=== PATIENT | male | born 1965 | race African-American/Black ===

== ENCOUNTER 2023-05-29 09:50 | Observation (INO) | payer OTHER, SELFPAY ==
[2023-05-29] VITALS (32 sets, daily range): BP systolic 136–205; BP diastolic 79–105; PULSE 75–115; RESP 14–33; TEMP 36.3–36.8; O2SAT 93–100
--- NOTE | ~2023-05-29 | CT_ITS ---
EXAMINATION: CTA chest PE protocol DATE: 05/29/2023 11:26 INDICATION: Syncope. TECHNIQUE: Computed tomography angiography (CTA) of the chest was performed with 100 mL Omnipaque-350 intravenous contrast timed to evaluate the pulmonary arteries. Coronal maximum intensity projection 3D-reconstructions were created by the technologist. Automated exposure control and iterative reconst ruction technique were employed. The dose-length product was 1867.25 mGy-cm. COMPARISON: None. FINDINGS: The lungs demonstrate mild dependent atelectasis. No pleural effusion. Cardiomegaly is note d. No pericardial effusion. There is no pulmonary embolus. There are bridging endplate osteophytes at multiple levels in the spine, consistent with diffuse idiopathic skeletal hyperostosis (DISH). IMPRESSION: 1. No pulmonary embolus. Sensitivity is mildly decreased by motion artifact. Reviewed, dictated and finalized at location A.
--- NOTE | ~2023-05-29 | NM_ITS ---
EXAMINATION: NM stress w perf spect multi DATE: 06/01/2023 13:50 INDICATION: Chest pain. TECHNIQUE: Rest images were obtained following intravenous administration of 10 mCi Tc99m tetrofosmin (Myoview). The patient performed an exercise activity. At peak exercise, 30.6 mCi Tc99m tetrofosmin (Myoview) was administered intravenously, and stress images were obtained. Data was reconstructed int o short axis and horizontal and vertical long axis SPECT images. Gated SPECT images were also obtaine d. COMPARISON: Chest CT 05/29/2023 FINDINGS: Increased activity below the diaphragm decreases sensitivity and specificity in the inferio r wall. There is a small, mild, reversible perfusion defect involving apical lateral segment of left ventricle, consistent with ischemia. There is no segmental wall motion abnormality. Left ventricula r ejection fraction measures >70%. IMPRESSION: 1. Small area of mild ischemia involving apical lateral segment of left ventricle. 2. Normal left ventricular ejection fraction measuring >70%. Reviewed, dictated and finalized at location A. IMPRESSION: 1. Small area of mild ischemia involving apical lateral segment of left ventric le. 2. Normal left ventricular ejection fraction measuring >70%.
--- NOTE | ~2023-05-29 | XR_ITS ---
Portable chest x-ray Comparison: None Clinical History: Syncope Findings: Lungs are clear, without focal consolidation or pleural effusion. Cardiomediastinal silho uette is unremarkable. Bones and soft tissues are unremarkable. Impression: Normal chest. Reviewed, dictated and finalized at location . Impression: Normal chest.
--- NOTE | ~2023-05-29 | CT_ITS ---
EXAMINATION: CT brain wo con DATE: 05/29/2023 11:26 INDICATION: Syncope. Head injury. TECHNIQUE: Computed tomography (CT) of the head was performed without intravenous contrast. The mA wa s adjusted according to patient size. Iterative reconstruction technique was employed. The dose-lengt h product was 605.33 mGy-cm. COMPARISON: None FINDINGS: There is no intracranial hemorrhage, acute infarction, or abnormal intracranial mass lesion . There is an old lacunar infarct in left thalamus. The ventricles are normal in size. The orbits are normal. There is mild mucosal thickening in the ethmoid sinuses. The mastoid air cells are normal. IMPRESSION: 1. Old lacunar infarct in left thalamus. Reviewed, dictated and finalized at location A.
--- NOTE | 2023-05-29 09:55 | ECG_ITS ---
Measurements Intervals [place] Rate: 110 P: 59 MI: 177 QRS: 49 QRSD: 93 T: 65 QT: 329 QTc: 445 Interpretive Statements SINUS TACHYCARDIA POSSIBLE LEFT ATRIAL ENLARGEMENT [-0.1mV P WAVE IN V1/V2] NONSPECIFIC ST & T-WAVE ABNORMALITY ABNORMAL RHYTHM ECG NO PREVIOUS ECG AVAILABLE FOR COMPARISON Electronically Signed On 05-29-2023 14:26:04 CDT by Vinicius Barbosa M.D.
[2023-05-29 10:17] LABS: Basophils Percent Auto 0.6 % (0.2-1.2); Eosinophils Absolute Auto 0.1 K/mm3 (0-0.3); Eosinophils Percent Auto 1.1 % (0-4.4); Hematocrit 41.4 % (42.0-52.0); Hemoglobin 13.4 g/dL (14.0-18.0); Immature Granulocyte Absolute 0.02 K/mm3 (0.00-0.031); Immature Granulocyte Percent A 0.3 % (0-0.5); Lymphocytes Absolute Auto 1.53 K/mm3 (0.9-3.2); Lymphocytes Percent Auto 23.8 % (18.3-44.2); Mean Corpuscular HGB Conc 32.4 g/dl (32-36); Mean Corpuscular Hemoglobin 26.3 pg (26-34); Mean Corpuscular Volume 81.3 fl (80-100); Mean Platelet Volume 9.5 fl (7.4-10.4); Monocytes Absolute Auto 0.5 K/mm3 (0.1-0.6); Monocytes Percent Auto 7.5 % (2.6-8.5); Neutrophils Absolute Auto 4.3 K/mm3 (1.3-6.7); Neutrophils Percent Auto 66.7 % (45.5-73.1); Platelet Count Result 316 k/mm3 (150-375); Red Blood Count 5.09 M/mm3 (4.6-6.20); Red Cell Distribution Width 14.1 % (11.5-14.5); White Blood Count 6.4 K/mm3 (4.5-10.0)
--- NOTE | 2023-05-29 10:17 | ED.SYNCOPE ---
HPI - Syncope General Chief Complaint: Syncope Stated Complaint: mult. syncopal episodes, htn Time Seen by Provider: 05/29/23 10:01 History of Present Illness HPI narrative: This is a 57-year-old male, with past history of hypertension, brought in by EMS after syncopal episode. The patient states he has had several episodes of of nonbloody loose stools in the past day. He also states he recently started a new oral medications for his hypertension in the past 2 days. Today while standing at work, he states he suddenly lost consciousness. He is not sure of preceding symptoms. He complains of headache, described as dull, diffuse and rated 4/10. Related Data Home Medications Medication Instructions Recorded Confirmed amlodipine 5 mg tablet 5 mg PO DAILY 05/29/23 05/29/23 atorvastatin 40 mg tablet 40 mg PO HS 05/29/23 05/29/23 cholecalciferol (vitamin D3) 125 125 mcg PO DAILY 05/29/23 05/29/23 mcg (5,000 unit) capsule doxazosin 2 mg tablet 2 mg PO HS 05/29/23 05/29/23 empagliflozin 10 mg tablet 10 mg PO DAILY 05/29/23 05/29/23 (Jardiance) ezetimibe 10 mg tablet 10 mg PO DAILY 05/29/23 05/29/23 fluticasone fur. 100 mcg-umeclid 1 inh inhalation DAILY 05/29/23 05/29/23 62.5 mcg-vilant 25 mcg inhalat.powder (Trelegy Ellipta) folic acid 1 mg tablet 1 mg PO DAILY 05/29/23 05/29/23 hydralazine 100 mg tablet 100 mg PO TID 05/29/23 05/29/23 lisinopril 40 mg tablet 40 mg PO DAILY 05/29/23 05/29/23 metformin 500 mg tablet 500 mg PO BID 05/29/23 05/29/23 metoprolol succinate 25 mg 25 mg PO DAILY 05/29/23 05/29/23 tablet,extended release 24 hr sildenafil 100 mg tablet 100 mg PO DAILY PRN Erectile 05/29/23 05/29/23 Dysfunction Allergies Allergy/AdvReac Type Severity Reaction Status Date / Time No Known Allergies Allergy Verified 05/29/23 09:57 Review of Systems Review of Systems: CONSTITUTIONAL: Denies fever, chills, or sweats. CARDIOVASCULAR: Denies chest pain, palpitations, or edema. RESPIRATORY: Denies cough or dyspnea. GASTROINTESTINAL: Nausea denies abdominal pain, vomiting, or diarrhea. GENITOURINARY: Denies dysuria or hematuria. SKIN: Denies rash or itching. MUSCULOSKELETAL: Denies back pain, joint pain, or myalgia. NEUROLOGIC: Headache denies numbness, dizziness, or weakness. PSYCHIATRIC: Denies anxiety or depression. PMFSH Past Medical History Medical History Hypertension Surgical History Surgical History No significant past surgical history Family History Family History (Updated 05/29/23 @ 17:00 by Ora Cruz RN) Other No problems noted. Grandparent No problems noted. Mother Cancer Sibling Cancer Social History Social History Smoking status: Never smoker Alcohol intake: never Drinks per week: 1 Substance use: never Lack of Transportation: No Lack of Food: Never True Current Housing: I Have Housing Concerned About Future Housing: No Difficulty Paying Gas/Electric Bills: No Difficulty Paying for Meds: No Currently Unemployed: No Education: Bachelor's Degree Difficulty w/ Childcare or Family Care: No Spiritual care concerns: No Exam Narrative: GENERAL: Well-developed, well-nourished, and in no acute distress. HEAD: Normocephalic, atraumatic. EYES: PERRLA and EOMI. ENT: Nares clear, no rhinorrhea or epistaxis. Mucous membranes moist. Oropharynx without tonsillar hypertrophy exudate or other lesions. NECK: Supple. No adenopathy or masses. No midline spine tenderness to palpation, no step-off or crepitus CHEST: Clear to auscultation. No respiratory distress. No wheezes rales or rhonchi HEART: Tachycardic with regular rhythm. No murmur heard. Normal peripheral pulses. ABDOMEN: Soft, nontender, nondistended, normal active bowel sounds. EXTREMITIES: Normal
[2023-05-29 10:28] LABS: Alanine Aminotransferase 28 U/L (6-50); Albumin Level 4.2 g/dL (3.5-5.1); Alkaline Phosphatase 111 U/L (38-126); Anion Gap 7 mmol/L (8-16); Aspartate Amino Transferase 24 U/L (17-59); Bilirubin,Total 0.4 mg/dL (0.2-1.3); Blood Urea Nitrogen 12 mg/dL (9-20); Calcium 9.1 mg/dL (8.4-10.2); Carbon Dioxide 21 mmol/L (22-30); Chloride 107 mmol/L (98-107); Estimated CRCL calculation 86 ml/min; Estimated Glomerular Filt Rate > 60; Glucose 179 mg/dL (65-110); Potassium 3.5 mmol/L (3.4-5.0); Sodium 135 mmol/L (137-145)
[2023-05-29] MEDS: SODIUM CHLORIDE 0.9% IV 1,000 ML 999 ML IV CONT (10:29)
[2023-05-29] MEDS: ONDANSETRON INJ 4 MG/2 ML VIAL IV PUSH (10:30)
[2023-05-29] MEDS: ACETAMINOPHEN 500 MG TABLET 1000 MG PO ×2 (10:30→19:48)
[2023-05-29 10:39] LABS: Prothrombin Time 13.4 Seconds (11.1-14.7)
[2023-05-29 11:11] LABS: Creatine Kinase 112 U/L (55-170); Magnesium 1.7 mg/dL (1.6-2.3)
[2023-05-29] MEDS: LABETALOL HCL INJ 100 MG/20 ML VIAL 20 MG IV PUSH (11:57)
[2023-05-29] MEDS: hydrALAZINE HCL 20 MG/ML VIAL IV PUSH (13:23)
[2023-05-29 13:59] LABS: Troponin I < 0.012 ng/mL (0.000-0.034)
[2023-05-29 16:38] LABS: Troponin I < 0.012 ng/mL (0.000-0.034)
--- NOTE | 2023-05-29 16:50 | ADMGEN ---
This patient, Lokesh Phoenix, was admitted to IMU Room 204-01 on 05/29/23 at 1620. Patient/family oriented to hospital policies and general routines including ID bracelet, bed and alarms, visiting hours, pain management, procedures, bathroom and other care routines, personal items, smoking policy, room service/diet, and visiting hours. Information on how to activate the Rapid Response Team has been discussed. Patient/Family are encouraged to report perceived risks to care and to ask questions if they do not understand what they are told or what they should do.
[2023-05-29 16:52] LABS: Glucose Point of Care 93 mg/dl (65-105)
[2023-05-29] MEDS: hydrALAZINE HCL 20 MG/ML VIAL 10 MG IV PUSH (19:47)
--- NOTE | 2023-05-29 19:59 | PM.IMHP ---
H&P: HPI History of Present Illness Date/Time: 05/29/23 19:59 Chief Complaint: Passed out Narrative: 57-year-old male with a past medical history of diabetes, hypertension, erectile dysfunction and COPD who presented to the ER after having syncopal episode. 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 He was walking across the floor after he exited the forklift and suddenly developed crushing chest pain like someone was standing on his chest. He stated that he could not breathe and became sweaty. He then collapsed. Individual that his work stated that he had multiple syncopal events. A caught him while he was passing out any slumped against the desk. I suspect the patient was likely in out and may have been confused and this was interpreted as multiple syncopal events. It is unclear as there are no coworkers present. The patient's is at bedside and helps provide some of the history with the patient's permission. The patient states that he he had just taken his medications as he got off a forklift due to his symptoms. However on review of his external med history it looks like the patient had not wrist had any of his medications filled since October implying that he would of ran out of his medications in December. The only refilled on the 24 of May. The patient's is unsure if the patient is actually feeling or taking his medications as prescribed. She does not think they have been taking has erectile dysfunction today. The patient stated that he thought he had passed out because of taking all of his medications at once. He has been having several episodes of nonbloody loose stools over the past day or so. In the ER he was noted to be hypertensive. He was having a dull diffuse headache graded 4/10 in intensity. His coworkers stated the patient did not hit his head. He denies any associated nausea. He does snore and has a history of obstructive sleep apnea. He is in non compliant with his CPAP in his reports that she has step [place] him to use his CPAP. The patient had an echocardiogram many years ago but has never had a stress test. The patient reports that he is active enough that he thinks he could complete a treadmill stress test if needed. He stated that he used to jump rope for exercise but has not done so in a couple of months. He denies any urinary symptoms. He denies nausea or vomiting. He does have a history of GERD. The patient's reports that the patient has pre diabetes but patient is on to diabetic medications which would indicate the patient likely has diabetes. He does have urinary symptoms of BPH and is on medications for this. He has exercise-induced asthma per 's report. Patient denies any current wheezing. He does report feeling mildly short of breath. The patient did have a CTA of his chest which was negative for pulmonary embolism. CT of his head was negative. Chest x-ray was unremarkable. The patient did respond well to IV Lopressor given in the ER but his blood pressure rebounded quickly. He received another dose of IV hydralazine. With again rebounding blood pressure. Review of Systems Review of Systems: 12 systems were reviewed with pertinent positives and negatives per HPI. Except as documented in the HPI, all other systems were reviewed and are negative. Patient denies peripheral neuropathy symptoms he is PMFSH Past Medical History Medical History (Updated 05/30/23 @ 03:34 by Lauren Gonzalez DO) Erectile dysfunction Hyperlipidemia Hypertension Obstructive sleep apnea PTSD (post-traumatic stress disorder) Type 2 diabetes mellitus Surgical History Surgical History (Updated 05/30/23 @ 03:28 by Lauren Gonzalez DO) History of carpal tunnel release (~2011) Left History of surgery on arm (~2011) Left bicep tendon repair Family History Family History (Updated 05/30/23 @ 03:29 by Lauren Gonzalez DO) Mother Breast cancer, Onset Age: 50 Si
[2023-05-29 20:00] LABS: Glucose Point of Care 135 mg/dl (65-105)
[2023-05-29 20:28] LABS: Troponin I < 0.012 ng/mL (0.000-0.034)
[2023-05-29] MEDS: amLODIPine BESYLATE 5 MG TABLET PO (21:16)
[2023-05-29] MEDS: DOXAZOSIN MESYLATE 2 MG TABLET PO (21:17)
[2023-05-29] MEDS: ATORVASTATIN 40 MG TABLET PO (21:17)
[2023-05-29] MEDS: METOPROLOL SUCCINATE EXT REL 25 MG TABCR PO (21:17)
[2023-05-29] MEDS: hydrALAZINE HCL 50 MG TABLET 100 MG PO (21:18)
[2023-05-30] VITALS (17 sets, daily range): BP systolic 139–161; BP diastolic 70–77; PULSE 75–92; RESP 14–20; TEMP 36.4–36.9; O2SAT 94–97
[2023-05-30 04:37] LABS: Basophils Percent Auto 0.3 % (0.2-1.2); Eosinophils Percent Auto 0.6 % (0-4.4); Hematocrit 42.3 % (42.0-52.0); Hemoglobin 13.4 g/dL (14.0-18.0); Immature Granulocyte Absolute 0.02 K/mm3 (0.00-0.031); Immature Granulocyte Percent A 0.3 % (0-0.5); Lymphocytes Absolute Auto 1.23 K/mm3 (0.9-3.2); Lymphocytes Percent Auto 19.9 % (18.3-44.2); Mean Corpuscular HGB Conc 31.7 g/dl (32-36); Mean Corpuscular Hemoglobin 26.4 pg (26-34); Mean Corpuscular Volume 83.4 fl (80-100); Mean Platelet Volume 9.8 fl (7.4-10.4); Monocytes Absolute Auto 0.4 K/mm3 (0.1-0.6); Monocytes Percent Auto 6.3 % (2.6-8.5); Neutrophils Absolute Auto 4.5 K/mm3 (1.3-6.7); Neutrophils Percent Auto 72.6 % (45.5-73.1); Platelet Count Result 302 k/mm3 (150-375); Red Blood Count 5.07 M/mm3 (4.6-6.20); Red Cell Distribution Width 14.4 % (11.5-14.5); White Blood Count 6.2 K/mm3 (4.5-10.0)
[2023-05-30 04:48] LABS: Anion Gap 3 mmol/L (8-16); Blood Urea Nitrogen 11 mg/dL (9-20); Calcium 9.3 mg/dL (8.4-10.2); Carbon Dioxide 27 mmol/L (22-30); Chloride 106 mmol/L (98-107); Estimated CRCL calculation 78 ml/min; Estimated Glomerular Filt Rate > 60; Glucose 122 mg/dL (65-110); Potassium 3.9 mmol/L (3.4-5.0); Sodium 136 mmol/L (137-145)
[2023-05-30 07:33] LABS: Glucose Point of Care 121 mg/dl (65-105)
[2023-05-30] MEDS: CHOLECALCIFEROL 1,000 UNITS TABLET 5000 UNITS PO (08:09)
[2023-05-30] MEDS: amLODIPine BESYLATE 5 MG TABLET PO (08:09)
[2023-05-30] MEDS: EMPAGLIFLOZIN 10 MG TABLET PO (08:10)
[2023-05-30] MEDS: EZETIMIBE 10 MG TABLET PO (08:10)
[2023-05-30] MEDS: ENOXAPARIN 40 MG/0.4 ML SYRINGE SUB-Q (08:10)
[2023-05-30] MEDS: lisinopriL 20 MG TABLET 40 MG PO (08:11)
[2023-05-30] MEDS: hydrALAZINE HCL 50 MG TABLET 100 MG PO ×3 (08:11→17:05)
[2023-05-30] MEDS: FOLIC ACID 1 MG TABLET PO (08:11)
[2023-05-30] MEDS: METOPROLOL SUCCINATE EXT REL 25 MG TABCR PO (08:11)
--- NOTE | 2023-05-30 08:52 | PM.IMPN ---
Progress Note: A&P Assessment and Plan (1) Hypertensive crisis: Code(s): I16.9 - Hypertensive crisis, unspecified Status: Acute Assessment and Plan: Significantly elevated blood pressures with presence of chest pain shortness of breath without elevated troponin or concerning lung findings. This is despite patient reporting taking his home medications. High pressures rebounded despite 2 medications IV for hypertension. Continue home medications, encourage CPAP use, pending NM Stress test. (2) Syncope: Qualifiers: Syncope type: unspecified Qualified Code(s): R55 - Syncope and collapse Code(s): R55 - Syncope and collapse Status: Acute Assessment and Plan: Apparent near syncope episode with severe hypertension, chest pain difficulty breathing negative PE study negative head CT, Appears to be related to hypertensive crisis. 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 Will hold metformin for 48 hours due to IV contrast load and check ACHS fingerstick glucose with insulin correction. Hemoglobin A1c 6.7 (4) Chest pain: Qualifiers: Chest pain type: unspecified Qualified Code(s): R07.9 - Chest pain, unspecified Code(s): R07.9 - Chest pain, unspecified Status: Acute Assessment and Plan: Patient currently chest pain-free at this time. NM stress test ordered (5) Obstructive sleep apnea: Code(s): G47.33 - Obstructive sleep apnea (adult) (pediatric) Status: Acute Assessment and Plan: Encourage home CPAP use both in the hospital and upon returning home. Plan Close monitoring of blood pressures and symptoms resume oral antihypertensives p.r.n. labetalol and hydralazine. Transfer out of IMU to med/tele stress test likely on Thursday. Glucose control with insulin, may resume metformin after 48 hours. continue home CPAP therapy Time Spent With Patient Time with patient: Greater than 35 minutes Subjective Date/time seen: 05/30/23 08:52 Interval history: This is a 57-year-old male patient admitted to the hospital for near syncopal episode with difficulty breathing and chest pain. Troponins negative. EKG sinus tachycardia with nonspecific ST and T-wave abnormality. He was admitted for nuclear med stress test and to manage symptoms that are likely caused by hypertensive crisis. Patient currently reports he has no chest pain no difficulty breathing though he is noted to appear minimally dyspneic minimally tachypneic. Patient denies nausea vomiting constipation or diarrhea. He denies fever chills. Denies ill contacts. Review of Systems Review of Systems: All systems reviewed & are unremarkable except as noted in HPI and below Exam Narrative: GENERAL: Generally well appearing, alert and oriented. He is pleasant and conversant in full sentences. HEENT: Pupils are equally round and briskly reactive to light. Extraocular muscles are intact. Oral mucous membranes are moist without lesions. NECK: The patient has no noted JVD. No adenopathy is appreciated. CHEST/LUNGS: Lungs are clear bilaterally without rhonchi, rales, or wheezes. There is no subcutaneous air appreciated. There is no tenderness to the chest wall. Patient minimally tachypneic minimally dyspneic on examination HEART: The patient has a regular rate and rhythm. No murmurs, rubs, or gallops are appreciated. Distal pulses are 2+. ABDOMEN: The patient's abdomen is soft, nontender, and nondistended. Bowel sounds a
[2023-05-30 11:32] LABS: Glucose Point of Care 108 mg/dl (65-105)
[2023-05-30 11:35] LABS: Hemoglobin A1C 6.7 % (<5.7)
[2023-05-30 15:46] LABS: Glucose Point of Care 109 mg/dl (65-105)
[2023-05-30] MEDS: ACETAMINOPHEN 500 MG TABLET 1000 MG PO (17:09)
[2023-05-30 19:41] LABS: Glucose Point of Care 110 mg/dl (65-105)
[2023-05-30] MEDS: ATORVASTATIN 40 MG TABLET PO (20:17)
[2023-05-30] MEDS: DOXAZOSIN MESYLATE 2 MG TABLET PO (20:17)
[2023-05-31] VITALS (14 sets, daily range): BP systolic 150–169; BP diastolic 69–82; PULSE 70–93; RESP 14–18; TEMP 36.3–36.7; O2SAT 94–97
[2023-05-31] MEDS: ACETAMINOPHEN 500 MG TABLET 1000 MG PO ×2 (01:00→21:20)
[2023-05-31 04:46] LABS: Hematocrit 39.6 % (42.0-52.0); Hemoglobin 12.5 g/dL (14.0-18.0); Mean Corpuscular HGB Conc 31.6 g/dl (32-36); Mean Corpuscular Hemoglobin 26.3 pg (26-34); Mean Corpuscular Volume 83.4 fl (80-100); Mean Platelet Volume 10.1 fl (7.4-10.4); Platelet Count Result 281 k/mm3 (150-375); Red Blood Count 4.75 M/mm3 (4.6-6.20); Red Cell Distribution Width 14.2 % (11.5-14.5); White Blood Count 4.7 K/mm3 (4.5-10.0)
[2023-05-31 04:52] LABS: Anion Gap 4 mmol/L (8-16); Blood Urea Nitrogen 16 mg/dL (9-20); Calcium 9.1 mg/dL (8.4-10.2); Carbon Dioxide 26 mmol/L (22-30); Chloride 104 mmol/L (98-107); Estimated CRCL calculation 78 ml/min; Estimated Glomerular Filt Rate > 60; Glucose 106 mg/dL (65-110); Potassium 3.7 mmol/L (3.4-5.0); Sodium 134 mmol/L (137-145)
[2023-05-31 07:18] LABS: Glucose Point of Care 85 mg/dl (65-105)
[2023-05-31] MEDS: FLUTICASONE/UMECLIDIN/VILANTER 100-62.5-25 MCG ELLIPTA 1 PUFF INHALATION (08:39)
[2023-05-31] MEDS: ENOXAPARIN 40 MG/0.4 ML SYRINGE SUB-Q (08:58)
[2023-05-31] MEDS: CHOLECALCIFEROL 1,000 UNITS TABLET 5000 UNITS PO (08:58)
[2023-05-31] MEDS: METOPROLOL SUCCINATE EXT REL 25 MG TABCR PO (08:59)
[2023-05-31] MEDS: FOLIC ACID 1 MG TABLET PO (08:59)
[2023-05-31] MEDS: EMPAGLIFLOZIN 10 MG TABLET PO (08:59)
[2023-05-31] MEDS: hydrALAZINE HCL 50 MG TABLET 100 MG PO ×3 (08:59→18:00)
[2023-05-31] MEDS: EZETIMIBE 10 MG TABLET PO (08:59)
[2023-05-31] MEDS: amLODIPine BESYLATE 5 MG TABLET PO (08:59)
[2023-05-31] MEDS: lisinopriL 20 MG TABLET 40 MG PO (08:59)
--- NOTE | 2023-05-31 09:52 | PM.IMPN ---
Progress Note: A&P Assessment and Plan (1) Hypertensive crisis: Code(s): I16.9 - Hypertensive crisis, unspecified Status: Acute Assessment and Plan: Significantly elevated blood pressures with presence of chest pain shortness of breath without elevated troponin or concerning lung findings. This is despite patient reporting taking his home medications. High pressures rebounded despite 2 medications IV for hypertension. Continue home medications, encourage CPAP use, pending NM Stress test on Thursday (2) Syncope: Qualifiers: Syncope type: unspecified Qualified Code(s): R55 - Syncope and collapse Code(s): R55 - Syncope and collapse Status: Acute Assessment and Plan: Apparent near syncope episode with severe hypertension, chest pain difficulty breathing negative PE study negative head CT, Appears to be related to hypertensive crisis. See #1 (3) Type 2 diabetes mellitus: Qualifiers: Diabetes mellitus halfway insulin use: without halfway use Diabetes mellitus complication status: without complication Qualified Code(s): E11.9 - Type 2 diabetes mellitus without complications Code(s): E11.9 - Type 2 diabetes mellitus without complications Status: Acute Assessment and Plan: Patient possibly non compliant with home medications also experiencing some loose stools potentially related to recently resuming metformin. Will hold metformin for 48 hours due to IV contrast load and check ACHS fingerstick glucose with insulin correction. Hemoglobin A1c 6.7 (4) Chest pain: Qualifiers: Chest pain type: unspecified Qualified Code(s): R07.9 - Chest pain, unspecified Code(s): R07.9 - Chest pain, unspecified Status: Acute Assessment and Plan: Patient currently chest pain-free at this time. NM stress test ordered (5) Obstructive sleep apnea: Code(s): G47.33 - Obstructive sleep apnea (adult) (pediatric) Status: Acute Assessment and Plan: Encourage home CPAP use both in the hospital and upon returning home. (6) Panic attack: Code(s): F41.0 - Panic disorder [episodic paroxysmal anxiety] Status: Acute Assessment and Plan: Immediately after swallowing morning medication use patient began to have severe anxiety feeling like something is not right with bilateral upper extremity tremors. His reaction was to sudden for any of his oral medications to have caused the symptoms and this is a similar episode he described that brought him to the emergency department except this time he did not pass out. Plan Close monitoring of blood pressures and symptoms resume oral antihypertensives p.r.n. labetalol and hydralazine, schedule night dosing of once a day medications Transfer out of IMU to med/tele NM stress test on Thursday. Glucose control with insulin, may resume metformin 48 hours after IV contrast was given. continue home CPAP therapy Time Spent With Patient Time with patient: 25 - 35 minutes Subjective Date/time seen: 05/31/23 09:52 Interval history: 05/30: This is a 57-year-old male patient admitted to the hospital for near syncopal episode with difficulty breathing and chest pain. Troponins negative. EKG sinus tachycardia with nonspecific ST and T-wave abnormality. He was admitted for nuclear med stress test and to manage symptoms that are likely caused by hypertensive crisis. Patient currently reports he has no chest pain no difficulty breathing though he is noted to appear minimally dyspneic minimally tachypneic. Patient denies nausea vomiting constipation or diarrhea. He denies fever chills. Denies ill contacts. 05/31: Patient reports he is not experiencing chest pain or shortness of breath but he is shaking and concerned that something does feel right. at bedside states patient began to feel this way he immediately swallowing his morning medications that include multiple blo
[2023-05-31 11:07] LABS: Glucose Point of Care 112 mg/dl (65-105)
[2023-05-31 16:21] LABS: Glucose Point of Care 137 mg/dl (65-105)
[2023-05-31 20:24] LABS: Glucose Point of Care 136 mg/dl (65-105)
[2023-05-31] MEDS: ATORVASTATIN 40 MG TABLET PO (21:20)
[2023-05-31] MEDS: DOXAZOSIN MESYLATE 2 MG TABLET PO (21:20)
[2023-06-01] VITALS (11 sets, daily range): BP systolic 119–158; BP diastolic 58–87; PULSE 78–111; RESP 15–48; TEMP 36.2–36.7; O2SAT 91–98
--- NOTE | 2023-06-01 | EST_ITS ---
Patient Info Name: oLkesh Phoenix Age: 57 years : 1965 Gender: Male Ht: 72 in Wt: 266 lbs BSA: 2.52 m2 HR: 103 bpm BP: 175 / 59 mmHg Heart Rhythm: Sinus Arrhythmia Exam Date: 06/01/2023 12:05 PM Exam Location: [facility] Stress Patient Status: Inpatient Admit Date: 05/29/2023 Staff Ordering Physician: Lauren Gonzalez DO Attending Provider: Damaris Marino DO Exercise Technologist: Radha Magaña CT Nurse: Brionna Bruner APN Exam Type: CA stress landry w NM Study Info Indications R07.89 - Other chest pain A regadenoson stress test was performed. Summary 1. Frequent stress-induced PVCs and ventricular bigeminy. 2. No ST/T wave changes with Lexiscan administration consistent with myocardial ischemia compared to baseline. 3. Please correlate with nuclear medicine images, reported separately. 4. No chest discomfort with stress test. Protocol: Lexiscan Stress ECG Details Stage: REST Duration (min): 1 min : 43 sec HR (bpm): 106 SBP (mmHg): 175 DBP (mmHg): 59 Stage: REST Duration (min): 8 min : 56 sec HR (bpm): 105 SBP (mmHg): 175 DBP (mmHg): 59 Stage: STAGE 1 Duration (min): 1 min : 0 sec HR (bpm): 119 SBP (mmHg): 175 DBP (mmHg): 59 Stage: RECOVERY Duration (min): 1 min : 0 sec HR (bpm): 120 SBP (mmHg): 204 DBP (mmHg): 53 Stage: RECOVERY Duration (min): 2 min : 0 sec HR (bpm): 121 SBP (mmHg): 204 DBP (mmHg): 53 Stage: RECOVERY Duration (min): 3 min : 0 sec HR (bpm): 115 SBP (mmHg): 111 DBP (mmHg): 50 Stage: RECOVERY Duration (min): 4 min : 0 sec HR (bpm): 110 SBP (mmHg): 111 DBP (mmHg): 50 Stage: RECOVERY Duration (min): 5 min : 0 sec HR (bpm): 109 SBP (mmHg): 119 DBP (mmHg): 58 Stage: RECOVERY Duration (min): 6 min : 0 sec HR (bpm): 111 SBP (mmHg): 119 DBP (mmHg): 58 Stage: RECOVERY Duration (min): 7 min : 0 sec HR (bpm): 109 SBP (mmHg): 136 DBP (mmHg): 71 Stage: RECOVERY Duration (min): 8 min : 0 sec HR (bpm): 109 SBP (mmHg): 136 DBP (mmHg): 71 Stage: RECOVERY Duration (min): 9 min : 0 sec HR (bpm): 109 SBP (mmHg): 166 DBP (mmHg): 62 Stage: RECOVERY Duration (min): 10 min : 0 sec HR (bpm): 113 SBP (mmHg): 166 DBP (mmHg): 62 Stage: RECOVERY Duration (min): 11 min : 0 sec HR (bpm): 108 SBP (mmHg): 167 DBP (mmHg): 58 Stage: RECOVERY Duration (min): 11 min : 31 sec HR (bpm): 108 SBP (mmHg): 167 DBP (mmHg): 58 Rest HR: 105 bpm Peak HR: 123 bpm Rest Sys BP: 175 mmHg Peak Sys BP: 204 mmHg Max Pred HR: 161 bpm % Max Pred HR: 76 % Target HR: 137 bpm Max RPP: 25,092 bpm*mmHg Total Time: 1 min : 0 sec Rest [place] BP: 59 mmHg Peak [place] BP: 53 mmHg Total Dose: 0.4 mg Aminophylline Dose: 50 mg Resting ECG Sinus tachycardia, ST abnormality consider ischemia. Stress ECG No ST/T wave changes with Lexiscan administra
[2023-06-01 04:52] LABS: Hematocrit 42.4 % (42.0-52.0); Hemoglobin 13.3 g/dL (14.0-18.0); Mean Corpuscular HGB Conc 31.4 g/dl (32-36); Mean Corpuscular Hemoglobin 26.5 pg (26-34); Mean Corpuscular Volume 84.5 fl (80-100); Mean Platelet Volume 9.8 fl (7.4-10.4); Platelet Count Result 279 k/mm3 (150-375); Red Blood Count 5.02 M/mm3 (4.6-6.20); Red Cell Distribution Width 14.4 % (11.5-14.5); White Blood Count 5.6 K/mm3 (4.5-10.0)
[2023-06-01 05:05] LABS: Anion Gap 3 mmol/L (8-16); Blood Urea Nitrogen 16 mg/dL (9-20); Calcium 9.4 mg/dL (8.4-10.2); Carbon Dioxide 31 mmol/L (22-30); Chloride 103 mmol/L (98-107); Estimated CRCL calculation 72 ml/min; Estimated Glomerular Filt Rate > 60; Glucose 116 mg/dL (65-110); Potassium 3.8 mmol/L (3.4-5.0); Sodium 137 mmol/L (137-145)
[2023-06-01 07:43] LABS: Glucose Point of Care 111 mg/dl (65-105)
[2023-06-01] MEDS: EZETIMIBE 10 MG TABLET PO (09:14)
[2023-06-01] MEDS: CHOLECALCIFEROL 1,000 UNITS TABLET 5000 UNITS PO (09:14)
[2023-06-01] MEDS: hydrALAZINE HCL 50 MG TABLET 100 MG PO ×3 (09:14→17:26)
[2023-06-01] MEDS: FOLIC ACID 1 MG TABLET PO (09:14)
[2023-06-01] MEDS: EMPAGLIFLOZIN 10 MG TABLET PO (09:14)
[2023-06-01] MEDS: ENOXAPARIN 40 MG/0.4 ML SYRINGE SUB-Q (09:15)
[2023-06-01] MEDS: FLUTICASONE/UMECLIDIN/VILANTER 100-62.5-25 MCG ELLIPTA 1 PUFF INHALATION (09:37)
--- NOTE | 2023-06-01 16:07 | PM.IMPN ---
Progress Note: A&P Assessment and Plan (1) Hypertensive crisis: Code(s): I16.9 - Hypertensive crisis, unspecified Status: Acute Assessment and Plan: Significantly elevated blood pressures with presence of chest pain shortness of breath without elevated troponin or concerning lung findings. This is despite patient reporting taking his home medications. High pressures rebounded despite 2 medications IV for hypertension. Continue home medications, encourage CPAP use. Nuclear med stress test revealing mild ischemia. Discussed with nurse practitioner in Cardiology and she recommended consultation. (2) Syncope: Qualifiers: Syncope type: unspecified Qualified Code(s): R55 - Syncope and collapse Code(s): R55 - Syncope and collapse Status: Acute Assessment and Plan: Apparent near syncope episode with severe hypertension, chest pain difficulty breathing negative PE study negative head CT, Appears to be related to hypertensive crisis. 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 Will hold metformin for 48 hours due to IV contrast load and check ACHS fingerstick glucose with insulin correction. Hemoglobin A1c 6.7 (4) Chest pain: Qualifiers: Chest pain type: unspecified Qualified Code(s): R07.9 - Chest pain, unspecified Code(s): R07.9 - Chest pain, unspecified Status: Acute Assessment and Plan: Patient currently chest pain-free at this time. NM stress test revealing mild ischemia. Cardiology consulted. (5) Obstructive sleep apnea: Code(s): G47.33 - Obstructive sleep apnea (adult) (pediatric) Status: Acute Assessment and Plan: Encourage home CPAP use both in the hospital and upon returning home. (6) Panic attack: Code(s): F41.0 - Panic disorder [episodic paroxysmal anxiety] Status: Acute Assessment and Plan: Immediately after swallowing morning medication use patient began to have severe anxiety feeling like something is not right with bilateral upper extremity tremors. His reaction was to sudden for any of his oral medications to have caused the symptoms and this is a similar episode he described that brought him to the emergency department except this time he did not pass out. Subjective Date/time seen: 06/01/23 16:07 Interval history: Patient resting in bed with at bedside. He states that his chest pain shortness a breath has resolved. Patient states that he is not compliant with his medication. Waiting on Cardiology consultation due to mild ischemia seen on stress test. Exam Narrative: GENERAL: Comfortable, no acute distress HENMT: moist mucous membranes EYES: EOM intact b/l NECK: no lymphadenopathy RESPIRATORY: clear to auscultation CARDIO: RRR GI: soft, nontender, bowel sounds present SKIN: no rashes EXTREMITIES: no edema, redness or tenderness Objective Data Vital Signs Vital Signs: Vital Signs - 24 hr 05/31/23 20:25 05/31/23 20:00 05/31/23 20:00 Temperature 97.3 F L Pulse Rate 86 86 Respiratory Rate 18 Blood Pressure 169/69 H Pulse Oximetry 94 94 Oxygen Delivery Room Air 05/31/23 22:00 05/31/23 23:04 06/01/23 00:00 Temperature Pulse Rate 91 78 Respiratory Rate Blood Pressure Pulse Oximetry Oxygen Delivery CPAP 06/01/23 03:48 06/01/23 04:00 06/01/23 08:00 Temperature 97.2 F L 97.9 F Pulse Rate 79 84 95 Respiratory Rate 18 18 Blood Pressure 139/68 158/87 H Pu
[2023-06-01 17:03] LABS: Glucose Point of Care 140 mg/dl (65-105)
[2023-06-01 20:24] LABS: Glucose Point of Care 188 mg/dl (65-105)
[2023-06-01] MEDS: DOXAZOSIN MESYLATE 2 MG TABLET PO (20:55)
[2023-06-01] MEDS: ATORVASTATIN 40 MG TABLET PO (20:55)
[2023-06-01] MEDS: METOPROLOL SUCCINATE EXT REL 25 MG TABCR PO (20:56)
[2023-06-01] MEDS: lisinopriL 20 MG TABLET PO (20:56)
[2023-06-01] MEDS: amLODIPine BESYLATE 5 MG TABLET PO (20:56)
[2023-06-02] VITALS (7 sets, daily range): BP systolic 167; BP diastolic 73; PULSE 78–98; RESP 20; TEMP 36.6; O2SAT 96–98
--- NOTE | 2023-06-02 | ECHO_ITS ---
Patient Info Name: Lokesh Phoenix Age: 57 years : 1965 Gender: Male Ht: 72 in Wt: 256 lbs BSA: 2.47 m2 HR: 88 bpm BP: 167 / 73 mmHg Heart Rhythm: Sinus Rhythm Technical Quality: Fair Exam Date: 06/02/2023 1:05 PM Exam Location: [facility] Pulmonary Patient Status: Inpatient Admit Date: 05/29/2023 Staff Ordering Physician: Vinicius Barbosa MD (parminder/eden) Acquisition Specialist: Debora Jiang RDCS Attending Provider: Damaris Marino DO Referring Physician: Familia ST; Exam Type: CA echo dop color flow w con Study Info Indications R55 - Syncope and collapse Complete two-dimensional, color flow and Doppler transthoracic echocardiogram is performed with contrast to opacify the left ventricle and to improve the deliniation of the left ventricle endocardial borders. Contrast/Agitated Saline Contrast/Ag. Saline: Definity Amount: 2.00 ml Administered By: Debora Jiang RDCS Existing IV Access: Yes IV Access Condition: patent with no signs of infiltration Summary 1. Left ventricular chamber dimension is normal. 2. Left ventricular systolic function is hyperdynamic, estimated at >70%. 3. There is moderately increased left ventricular wall thickness. 4. The left ventricular diastolic function is grade I diastolic dysfunction. 5. Right ventricular systolic function is normal. 6. No significant valvular disease. Left Ventricle Left ventricular chamber dimension is normal. Left ventricular systolic function is hyperdynamic, estimated at >70%. There is moderately increased left ventricular wall thickness. The left ventricular diastolic function is grade I diastolic dysfunction. Right Ventricle Right ventricular chamber dimension is not well visualized. Right ventricular systolic function is normal. Left Atria Left atrial chamber dimension is normal. Right Atria Right atrial chamber dimension is normal. Atrial Septum Intact interatrial septum visualized by color flow imaging. Aortic Valve The aortic valve is trileaflet. There is mild aortic valve sclerosis. There is no aortic valve stenosis. There is no aortic valve regurgitation. Pulmonic Valve The pulmonic valve is not well visualized. Mitral Valve There is trace mitral valve regurgitation. Tricuspid Valve There is trace tricuspid valve regurgitation. Pericardium/Pleural There is no pericardial effusion. Inferior Vena Cava Inferior vena cava is not well visualized. Aorta The aortic root size at the sinus of Valsalva is normal. Left Ventricular Outflow Tract Name Value Normal LVOT 2D LVOT Diameter 2.02 cm LVOT Doppler LVOT Peak Gradient 7 mmHg LVOT Mean Gradient 3 mmHg LVOT VTI 20.79 cm LVOT VTI/AV VTI Ratio 0.85 LVOT Stroke Volume 66.66 ml LVOT CO 5.70 l/min LVOT CI 2.31 L/min/m2 Pulmonic Valve Name Value Normal
[2023-06-02 04:44] LABS: Hematocrit 39.6 % (42.0-52.0); Hemoglobin 12.7 g/dL (14.0-18.0); Mean Corpuscular HGB Conc 32.1 g/dl (32-36); Mean Corpuscular Hemoglobin 26.9 pg (26-34); Mean Corpuscular Volume 83.9 fl (80-100); Mean Platelet Volume 9.5 fl (7.4-10.4); Platelet Count Result 271 k/mm3 (150-375); Red Blood Count 4.72 M/mm3 (4.6-6.20); Red Cell Distribution Width 14.3 % (11.5-14.5); White Blood Count 6.1 K/mm3 (4.5-10.0)
[2023-06-02 04:56] LABS: Anion Gap 6 mmol/L (8-16); Blood Urea Nitrogen 18 mg/dL (9-20); Carbon Dioxide 28 mmol/L (22-30); Chloride 104 mmol/L (98-107); Estimated CRCL calculation 78 ml/min; Estimated Glomerular Filt Rate > 60; Glucose 141 mg/dL (65-110); Potassium 3.8 mmol/L (3.4-5.0); Sodium 138 mmol/L (137-145)
[2023-06-02 08:26] LABS: Glucose Point of Care 119 mg/dl (65-105)
[2023-06-02] MEDS: FLUTICASONE/UMECLIDIN/VILANTER 100-62.5-25 MCG ELLIPTA 1 PUFF INHALATION (08:35)
[2023-06-02] MEDS: ENOXAPARIN 40 MG/0.4 ML SYRINGE SUB-Q (08:49)
[2023-06-02] MEDS: EZETIMIBE 10 MG TABLET PO (08:49)
[2023-06-02] MEDS: EMPAGLIFLOZIN 10 MG TABLET PO (08:49)
[2023-06-02] MEDS: FOLIC ACID 1 MG TABLET PO (08:49)
[2023-06-02] MEDS: CHOLECALCIFEROL 1,000 UNITS TABLET 5000 UNITS PO (08:50)
[2023-06-02] MEDS: hydrALAZINE HCL 50 MG TABLET 100 MG PO ×2 (08:57→13:01)
[2023-06-02 11:41] LABS: Glucose Point of Care 105 mg/dl (65-105)
[2023-06-02] MEDS: METOPROLOL SUCCINATE EXT REL 50 MG TABCR PO (13:01)
[2023-06-02] MEDS: PERFLUTREN LIPID MICROSPHERES 1.5 ML VIAL DILUTED TO 10 ML TOTAL VOLUME IV PUSH (13:10)
--- NOTE | 2023-06-02 13:30 | PM.CNCAR ---
Assessment and Plan Assessment and plan (1) Syncope: Qualifiers: Syncope type: unspecified Qualified Code(s): R55 - Syncope and collapse Code(s): R55 - Syncope and collapse Status: Acute Assessment and Plan: Will obtain an echocardiogram. Plan for 14 day event monitor at time of discharge. If echocardiogram unremarkable, then patient can be discharged home with outpatient follow up with us. Order for event monitor placed. (2) Hypertensive crisis: Code(s): I16.9 - Hypertensive crisis, unspecified Status: Acute Assessment and Plan: Likely related to medication noncompliance. Continue home medications of Amlodipine, Hydralazine, Toprol, Lisinopril. I am going to increase the dose of Toprol given frequent PVCs. If additional blood pressure control is needed, then recommend to increase dose of Amlodipine. (3) Type 2 diabetes mellitus: Qualifiers: Diabetes mellitus intermediate insulin use: without supervisor intermediates use Diabetes mellitus complication status: without complication Qualified Code(s): E11.9 - Type 2 diabetes mellitus without complications Code(s): E11.9 - Type 2 diabetes mellitus without complications Status: Acute Assessment and Plan: Management as per primary team. (4) PVC (premature ventricular contraction): Code(s): I49.3 - Ventricular premature depolarization Status: Acute Assessment and Plan: Noted to have frequent PVCs and ventricular bigeminy on stress test. Appears asymptomatic from his PVCs. Will increase dose of beta cyrus. (5) Abnormal stress test: Code(s): R94.39 - Abnormal result of other cardiovascular function study Status: Acute Assessment and Plan: Lexiscan shows small area of mild ischemia involving the apical lateral segment of the LV. LVEF is >70%. However, there is increased activity below the diaphragm which decreases sensitivity and specificity of the inferior wall. There is no segmental wall motion abnormality. He was also noted to have frequent PVCs and ventricular bigeminy during the EKG portion. No chest pain with the stress test. I discussed the results of the stress test with both patient and his at bedside. Discussed the findings of the stress test and the implications of the stress test. Discussed with them that there is a possibility this could be a false positive study due to increased gut activity, hypertensive crisis, and frequent PVCs at the time of the study. Discussed with them that the definitive way of knowing is with coronary angiography. Patient does not have any anginal chest pain. After discussion with the patient and his and shared decision making, will medically manage for now rather than pursue coronary angiography as patient does not have anginal chest pain. Will also obtain an echocardiogram for further eval. Discussed with them that an outpatient coronary CTA is also an option as well. Plan If echo without significant abnormality, then patient can be discharged home. Will arrange outpatient follow up in our office. Recommendations/plan discussed with Hospitalist. History of Present Illness History of Present Illness Consult date/time: 06/02/23 13:30 Requesting physician: Gail Melton PA-C Consult reason: Other (Abnormal stress test) Reason For Visit: Syncope Narrative: This is a 57 year old male with diabetes, hypertension, COPD, erectile dysfunction for whom we are consulted on regarding abnormal stress test. Patient initially presented on 05/29 after a syncopal episode. 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 He does report feeling lightheaded and dizzy prior to passing out. Patient states that he had passed out shortly after taking his blood pressure medications. He hadn't taken his blood pressure medications for a couple of days, and he restarted the day prior to the syncopal episode and he sa
--- NOTE | 2023-06-02 14:34 | PM.DS ---
DS: Admitting Diagnosis Discharge Date 06/02/23 Admitting Diagnosis Chest pain DS: Discharge Diagnosis Discharge Diagnosis (1) Hypertensive crisis: Code(s): I16.9 - Hypertensive crisis, unspecified Status: Acute (2) Syncope: Qualifiers: Syncope type: unspecified Qualified Code(s): R55 - Syncope and collapse Code(s): R55 - Syncope and collapse Status: Acute (3) Type 2 diabetes mellitus: Qualifiers: Diabetes mellitus intermediate card tender insulin use: without intermediate card tender use Diabetes mellitus complication status: without complication Qualified Code(s): E11.9 - Type 2 diabetes mellitus without complications Code(s): E11.9 - Type 2 diabetes mellitus without complications Status: Acute (4) Chest pain: Qualifiers: Chest pain type: unspecified Qualified Code(s): R07.9 - Chest pain, unspecified Code(s): R07.9 - Chest pain, unspecified Status: Acute Assessment and Plan: Patient currently chest pain-free at this time. NM stress test revealing mild ischemia. Cardiology consulted. (5) Obstructive sleep apnea: Code(s): G47.33 - Obstructive sleep apnea (adult) (pediatric) Status: Acute (6) Panic attack: Code(s): F41.0 - Panic disorder [episodic paroxysmal anxiety] Status: Acute DS: Summary Hospital Course Hospital Course: This is a 57-year-old with a past medical history of diabetes, hypertension , SHARDA but noncompliance with CPAP and COPD that presented to the ED on 05/29/2023 after syncopal episode. Patient had developed sudden crushing chest pain that made it difficult for him to breathe, he became diaphoretic and then collapsed. According to the patient he had just recently taken his blood pressure medications right before his symptoms began. When reviewing his external history it appear that patient had not been refilling his medications since October of 2022 and ran out of his medications and December. He did have some of them refilled in May 2023. CTA of patient's chest was negative for pulmonary embolism. CT of the head negative. Chest x-ray unremarkable. patient's blood pressure in the ED with systolic in the 190s and diastolic in the 80s. Patient was given Lopressor which caused decrease in blood pressure but then rebounded and then was transitioned to IV hydralazine. Patient's troponins were negative x2. Nuclear med stress test ordered. Stress test revealed mild ischemia and Cardiology was consulted. Cardiology recommended 14 day event monitor as well as an increase in patient's metoprolol. Patient's echocardiogram unremarkable. Recommend follow-up with Cardiology as an outpatient to review event monitor results. patient's labs and vital signs are stable and he is medically clear for discharge at this time. Time Spent with Patient Time attestation: Total time spent providing and/or coordinating discharge services: Exam Narrative: GENERAL: Comfortable, no acute distress HENMT: moist mucous membranes EYES: EOM intact b/l NECK: no lymphadenopathy RESPIRATORY: clear to auscultation CARDIO: RRR GI: soft, nontender, bowel sounds present SKIN: no rashes EXTREMITIES: no edema, redness or tenderness DS: Data Data Completed and Pending Labs on day of discharge: Labs from last 24 hours 06/02/23 06/02/23 06/02/23 11:23 08:05 04:30 WBC 6.1 RBC 4.72 Hgb 12.7 L Hct 39.6 L MCV 83.9 MCH 26.9 MCHC 32.1 RDW 14.3 Plt Count 271 MPV 9.5 PT INR Sodium 138 Potassium 3.8 Chloride 104 Carbon Dioxide 28 Anion Gap 6 L BUN 18 Creatinine 1.20 Estim Creat Clear Calc 78 Estimated GFR > 60 Glucose 141 H POC Capillary Glucose 105 119 H Hemoglobin A1c Calcium 9.0 Troponin I 06/01/23 06/01/23 05/30/23 20:05 16:42 04:16 WBC RBC Hgb Hct MCV MCH MCHC RDW Plt Count MPV PT INR [place]
--- NOTE | 2023-06-03 07:26 | IVDEFINITY ---
Prior to administration of IV Definity the patient was educated on the risks and benefits of the imaging enhancing agent including potential adverse side effects. The patient verbalized understanding. Allergies were verified. No exclusion criteria were identified and at least one of the following inclusion criteria were met: 1) physician request, 2) patient technically difficult to image (per the [place] [employer] guidelines of two or more segments not discernable within the apical view), or 3) questionable left ventricular function. ?
== END 2023-06-02 15:27 | disposition home or self-care (01) ==
LOC: ANHED 10:52 → ANHIMU 17:45
PROVIDERS: Nurse Practitioner; Student in an Organized Health Care Education/Training Program; Admitting Provider Internal Medicine; Emergency Provider Preventive Medicine Aerospace Medicine; PCP Internal Medicine; Visit Provider Internal Medicine
DX: I16.9 Hypertensive crisis, unspecified (principal); R55 Syncope and collapse; R07.9 Chest pain, unspecified; I49.3 Ventricular premature depolarization; R94.39 Abnormal result of other cardiovascular function study; I10 Essential (primary) hypertension; E11.9 Type 2 diabetes mellitus without complications; J44.9 Chronic obstructive pulmonary disease, unspecified; G47.33 Obstructive sleep apnea (adult) (pediatric); E78.5 Hyperlipidemia, unspecified; F43.10 Post-traumatic stress disorder, unspecified; F41.0 Panic disorder [episodic paroxysmal anxiety]; Z79.84 Long term (current) use of oral hypoglycemic drugs; Z79.51 Long term (current) use of inhaled steroids
CPT/HCPCS: 36415; 70450; 71045; 71275; 78452; 80048; 80053; 82550; 82948; 83036; 83605; 83735; 84484; 85025; 85027; 85610; 93005; 93017; 94640; 96361; 96372; 96374; 96375; 96376; 99285; A9270; A9502; C8929; G0378; J0280; J0360; J1650; J2405; J2785; J7030; Q9957; Q9967

== ENCOUNTER 2023-06-03 16:13 | Emergency (ER) | payer OTHER, SELFPAY ==
--- NOTE | ~2023-06-03 | CT_ITS ---
EXAMINATION: CTA chest PE protocol DATE: 06/03/2023 17:39 INDICATION: dyspnea TECHNIQUE: Computed tomography angiography (CTA) of the chest was performed with 100 mL Omnipaque-350 intravenous contrast timed to evaluate the pulmonary arteries. Coronal maximum intensity projection 3D-reconstructions were created by the technologist. The dose-length product (DLP) was 830.43 mGy-cm. Automated exposure control and iterative reconstruction technique were employed. COMPARISON: 05/29/2023. FINDINGS: Lung parenchyma and airways: Minimal dependent scar/atelectasis. Mild emphysematous change. 3 mm righ t upper lobe pulmonary nodule. Pleura: Unremarkable. Thoracic inlet, axillae and chest wall: Prominent bilateral axillary nodes, not pathologic by size cr iteria. Thoracic aorta: Bovine arch. Mediastinum: Enlarged prevascular and pretracheal lymph nodes. Prominent bilateral hilar nodes. Heart and pericardium: Mild cardiomegaly. Coronary artery calcifications: Absent. Upper abdomen: No significant finding. Bones: No acute osseous finding. Pulmonary arteries: Study quality: Adequate. No pulmonary emboli detected. IMPRESSION: No CT evidence of acute pulmonary embolus. No acute intrathoracic process detected. 3 mm right upper lobe pulmonary nodule, likely benign, requires no additional follow-up unless the pa tient is at high risk, in which case consider an optional low-dose noncontrast CT of the chest in 12 months. Reviewed, dictated and finalized at location K. IMPRESSION: No CT evidence of acute pulmonary embolus. No acute intrathoracic process detected. 3 mm right upper lobe pulmonary nodule, likely benign, requires no additional f ollow-up unless the patient is at high risk, in which case consider an optional low-dose noncontrast CT of the chest in 12 months.
[2023-06-03 16:16] VITALS: BP 156/89; PULSE 84; RESP 16; TEMP 36.9; O2SAT 97
--- NOTE | 2023-06-03 16:43 | ECG_ITS ---
Measurements Intervals [place] Rate: 84 P: 52 [place]: 186 QRS: 41 QRSD: 98 T: 57 QT: 387 QTc: 459 Interpretive Statements SINUS RHYTHM MINOR t-WAVE ABNORMALITY OTHERWISE NORMAL ECG COMPARED TO ECG 05/29/2023 10:01:46 HEART RATE IS REDUCED Electronically Signed On 06-04-2023 13:07:46 CDT by Dl Medrano M.D.
[2023-06-03 16:53] LABS: Basophils Percent Auto 0.3 % (0.2-1.2); Eosinophils Absolute Auto 0.1 K/mm3 (0-0.3); Hematocrit 40.5 % (42.0-52.0); Hemoglobin 12.7 g/dL (14.0-18.0); Immature Granulocyte Absolute 0.02 K/mm3 (0.00-0.031); Immature Granulocyte Percent A 0.3 % (0-0.5); Lymphocytes Absolute Auto 1.81 K/mm3 (0.9-3.2); Lymphocytes Percent Auto 23.6 % (18.3-44.2); Mean Corpuscular HGB Conc 31.4 g/dl (32-36); Mean Corpuscular Hemoglobin 26.5 pg (26-34); Mean Corpuscular Volume 84.4 fl (80-100); Mean Platelet Volume 9.9 fl (7.4-10.4); Monocytes Absolute Auto 0.7 K/mm3 (0.1-0.6); Monocytes Percent Auto 8.6 % (2.6-8.5); Neutrophils Absolute Auto 5.1 K/mm3 (1.3-6.7); Neutrophils Percent Auto 66.2 % (45.5-73.1); Platelet Count Result 292 k/mm3 (150-375); Red Cell Distribution Width 14.2 % (11.5-14.5); White Blood Count 7.7 K/mm3 (4.5-10.0)
[2023-06-03 16:59] LABS: Alanine Aminotransferase 40 U/L (6-50); Albumin Level 4.3 g/dL (3.5-5.1); Alkaline Phosphatase 88 U/L (38-126); Anion Gap 6 mmol/L (8-16); Aspartate Amino Transferase 34 U/L (17-59); Bilirubin,Total 0.5 mg/dL (0.2-1.3); Blood Urea Nitrogen 23 mg/dL (9-20); Calcium 9.2 mg/dL (8.4-10.2); Carbon Dioxide 30 mmol/L (22-30); Chloride 101 mmol/L (98-107); Estimated Glomerular Filt Rate > 60; Glucose 115 mg/dL (65-110); Sodium 137 mmol/L (137-145)
[2023-06-03 17:01] VITALS: BP 164/85; PULSE 89; RESP 19; O2SAT 96
[2023-06-03 17:03] LABS: Alveolar/Arterial O2 Gradient 32.1 mmHg; Base Excess ABG 1.1 mEq/l (+/-2.0); Fractional Inspired Oxygen 21 %; HCO3 ABG 25.8 mEq/l (22.0-26.0); Modified Allen's Test Pass; Oxygen Content ABG 17.2 %vol (16.0-22.0); Oxygen Saturation ABG 93.8 % (95.0-100.0); Oxyhemoglobin 91.3 % THb (90.0-100.0); PCO2 ABG 41.5 mmHg (35.0-45.0); PO2 ABG 67.9 mmHg (80.0-100.0); PO2 FiO2 Ratio Arterial Blood 3.23 %; Site Drawn RIGHT RADIAL; Total Hemoglobin 13.4 g/dL (12.0-18.0); pH ABG 7.412 (7.350-7.450)
[2023-06-03 17:05] LABS: INR 0.9; Prothrombin Time 12.6 Seconds (11.1-14.7)
[2023-06-03 17:06] LABS: Partial Thromboplastin Time 31.3 SECONDS (22.3-36.8)
[2023-06-03 17:11] LABS: Troponin I < 0.012 ng/mL (0.000-0.034)
[2023-06-03] MEDS: LORazepam INJ (*CRX) 2 MG/ML VIAL 0.5 MG IV PUSH (17:13)
[2023-06-03 17:34] LABS: NT Pro B Type Natriuretic Pept < 20 pg/mL (19.9-100)
--- NOTE | 2023-06-03 17:49 | ED.GENADULT ---
HPI - General Adult General Chief complaint: Unspecified Stated complaint: ssiezure Time Seen by Provider: 06/03/23 16:19 History of Present Illness HPI narrative: Patient is a 57-year-old male who presents ER with shortness of breath and confusion. Patient is are at a pharmacy when they picked up his medication. He was then in the car and started saying he was short of breath. He was having decreasing responsiveness and felt like he was falling asleep. If she would strike him with her hand he would wake up immediately and talk to her. This continued for approximately a half hour or more. Patient is about to start treatment for PTSD as well. He is having no chest pain. No hemoptysis. Recently was admitted for similar symptoms and had negative CTA and cardiac work-up. He did have a stress test where he had bigeminy and he is going to have a outpatient monitoring device placed. Furthermore he had a normal echocardiogram. Related Data Home Medications Medication Instructions Recorded Confirmed atorvastatin 40 mg tablet 40 mg PO HS 05/29/23 05/29/23 cholecalciferol (vitamin D3) 125 125 mcg PO DAILY 05/29/23 05/29/23 mcg (5,000 unit) capsule doxazosin 2 mg tablet 2 mg PO HS 05/29/23 05/29/23 empagliflozin 10 mg tablet 10 mg PO DAILY 05/29/23 05/29/23 (Jardiance) ezetimibe 10 mg tablet 10 mg PO DAILY 05/29/23 05/29/23 fluticasone fur. 100 mcg-umeclid 1 inh inhalation DAILY 05/29/23 05/29/23 62.5 mcg-vilant 25 mcg inhalat.powder (Trelegy Ellipta) folic acid 1 mg tablet 1 mg PO DAILY 05/29/23 05/29/23 hydralazine 100 mg tablet 100 mg PO TID 05/29/23 05/29/23 metformin 500 mg tablet 500 mg PO BID 05/29/23 05/29/23 sildenafil 100 mg tablet 100 mg PO DAILY PRN Erectile 05/29/23 05/29/23 Dysfunction Allergies Allergy/AdvReac Type Severity Reaction Status Date / Time No Known Allergies Allergy Verified 06/03/23 17:35 Review of Systems Review of Systems: All systems reviewed & are unremarkable except as noted in HPI and below Constitutional: Constitutional: Denies chills, Denies fever(s) and Denies headache(s) ENT: Denies nasal congestion and Denies sore throat Cardiovascular: Cardiovascular: Denies chest pain, Denies radiating jaw, neck or arm pain and Denies palpitations Respiratory: Respiratory: Denies cough, Denies excessive phlegm production and Reports dyspnea Gastrointestinal: Gastrointestinal: Denies abdominal pain, Denies nausea and Denies vomiting Neurologic: Denies syncope, Denies focal weakness and Denies weakness PMFSH Past Medical History Medical History Erectile dysfunction Hyperlipidemia Hypertension Obstructive sleep apnea PTSD (post-traumatic stress disorder) Type 2 diabetes mellitus Uncontrolled hypertension Surgical History Surgical History History of carpal tunnel release (~2011) Left History of surgery on arm (~2011) Left bicep tendon repair Family History Family History Mother Breast cancer, Onset Age: 50 Sibling Pancreatic cancer, Onset Age: 38 Social History Social History Social History: The patient living with his of approximately 25 years. They do not have any children. he is a lifelong nonsmoker. He drinks on occasion in moderation. He denies illicit substance use. Code status: Full code Surrogate decision maker: Smoking status: Never smoker Alcohol intake: never Drinks per week: 1 Substance use: never Lack of Transportation: No Lack of Food: Never True Current Housing: I Have Housing Concerned About Future Housing: No Difficulty Paying Gas/Electric Bills: No Difficulty Paying for Meds: No Currently Unemployed: No Education: Bachelor's Degree Difficulty w/ Childcare or Family Care: No Spiritu
== END 2023-06-03 17:38 | disposition home or self-care (01) ==
PROVIDERS: Emergency Provider Emergency Medicine; PCP Internal Medicine
DX: F41.0 Panic disorder [episodic paroxysmal anxiety] (principal); E78.5 Hyperlipidemia, unspecified; I10 Essential (primary) hypertension; E11.9 Type 2 diabetes mellitus without complications; G47.33 Obstructive sleep apnea (adult) (pediatric); F43.10 Post-traumatic stress disorder, unspecified; Z79.84 Long term (current) use of oral hypoglycemic drugs; R94.31 Abnormal electrocardiogram [ECG] [EKG]
CPT/HCPCS: 36415; 36600; 71275; 80053; 82805; 83880; 84484; 85025; 85610; 85730; 93005; 96374; 99284; J2060; Q9967

== ENCOUNTER 2024-09-29 13:15 | Emergency (ER) | payer OTHER, SELFPAY ==
--- NOTE | ~2024-09-29 | CT_ITS ---
EXAMINATION: CT abdomen pelvis w con DATE: 09/29/2024 15:13 INDICATION: Left flank, hip and abdominal pain. TECHNIQUE: Computed tomography (CT) of the abdomen and pelvis was performed with 100 mL Omnipaque-350 intravenous contrast. Automated exposure control and iterative reconstruction technique were employe d. The dose-length product was 1352.87 mGy-cm. COMPARISON: None FINDINGS: Lung bases are clear. Heart size is normal. No pericardial or pleural effusion. Liver, gallbladder, s pleen, pancreas and bilateral adrenal glands are normal. Bilateral renal cysts the largest on the lef t measuring 1.2 cm. Diverticula without adjacent from trace stranding at the splenic flexure of the c olon. Bowels including the appendix are otherwise normal. Bladder is normal. No free intraperitoneal gas or fluid. No pathologically enlarged abdominal or pelvic lymphadenopathy. Mild lumbar and mild to moderate lower thoracic spondylosis with bridging osteophytes at several levels in the lower thoraci c spine consistent with diffuse idiopathic skeletal hyperostosis (DISH). IMPRESSION: 1. No acute intra-abdominal/pelvic process. Reviewed, dictated and finalized at location A. [employer]
[2024-09-29 13:26] VITALS: BP 139/69; PULSE 99; RESP 20; TEMP 36.6; O2SAT 97
--- NOTE | 2024-09-29 13:41 | ECG_ITS ---
Test Date: 2024-09-29 13:55:17 Measurements Intervals [place] Rate: 93 P: 51 [place]: 152 QRS: 44 QRSD: 93 T: 66 QT: 377 QTc: 470 Interpretive Statements SINUS RHYTHM NONSPECIFIC T-WAVE ABNORMALITY No previous ECG available for comparison Electronically Signed On 09-29-2024 16:17:46 CERTIFIED PESTICIDE APPLICATOR by Helder Bush
--- NOTE | 2024-09-29 13:58 | ED_ITS ---
HPI - Abdominal Pain General Chief Complaint: Abdominal Pain Stated Complaint: left side abd pain Time Seen by Provider: 09/29/24 13:41 History of Present Illness HPI narrative: patient states he has had within a week ago left-sided pain, seems to be worse with movement of his left hip, also some left back/ Lower abdominal pain. no recent injuries Related Data Home Medications ?Medication ?Instructions ?Recorded ?Confirmed ?Last Taken ?Type atorvastatin 40 mg tablet 40 mg PO HS 05/29/23 05/29/23 Unknown History cholecalciferol (vitamin D3) 125 125 mcg PO DAILY 05/29/23 05/29/23 Unknown History mcg (5,000 unit) capsule doxazosin 2 mg tablet 2 mg PO HS 05/29/23 05/29/23 Unknown History empagliflozin 10 mg tablet 10 mg PO DAILY 05/29/23 05/29/23 Unknown History (Jardiance) ezetimibe 10 mg tablet 10 mg PO DAILY 05/29/23 05/29/23 Unknown History fluticasone fur. 100 mcg-umeclid 1 inh inhalation DAILY 05/29/23 05/29/23 Unknown History 62.5 mcg-vilant 25 mcg inhalat.powder (Trelegy Ellipta) folic acid 1 mg tablet 1 mg PO DAILY 05/29/23 05/29/23 Unknown History hydralazine 100 mg tablet 100 mg PO TID 05/29/23 05/29/23 Unknown History metformin 500 mg tablet 500 mg PO BID 05/29/23 05/29/23 Unknown History sildenafil 100 mg tablet 100 mg PO DAILY PRN Erectile 05/29/23 05/29/23 Unknown History Dysfunction Allergies Allergy/AdvReac Type Severity Reaction Status Date / Time No Known Allergies Allergy Verified 06/03/23 17:35 Review of Systems 2 Review of Systems: All systems reviewed & are unremarkable except as noted in HPI and below PMFSH Past Medical History Medical History Erectile dysfunction Hyperlipidemia Hypertension Obstructive sleep apnea PTSD (post-traumatic stress disorder) Type 2 diabetes mellitus Uncontrolled hypertension Surgical History Surgical History History of carpal tunnel release (~2011) Left History of surgery on arm (~2011) Left bicep tendon repair Family History Family History Mother Breast cancer, Onset Age: 50 Sibling Pancreatic cancer, Onset Age: 38 Social History Social History Social History: The patient living with his of approximately 25 years. They do not have any children. he is a lifelong nonsmoker. He drinks on occasion in moderation. He denies illicit substance use. Code status: Full code Surrogate decision maker: Smoking status: Never smoker Alcohol intake: never Drinks per week: 1 Substance use: never Lack of Transportation: No Lack of Food: Never True Current Housing: I Have Housing Concerned About Future Housing: No Difficulty Paying Gas/Electric Bills: No Difficulty Paying for Meds: No Currently Unemployed: No Education: Bachelor's Degree Difficulty w/ Childcare or Family Care: No Spiritual care concerns: No Exam 2 Narrative: EXAMINATION OF ORGAN SYSTEMS/BODY AREAS: Constitutional: Vital signs per nursing GENERAL:[No acute distress, non-toxic appearing.] HEAD: Normal with no signs of head trauma. EYES: EOMI, conjunctiva normal ENT: Hearing grossly intact LUNGS: Nonlabored breathing. HEART: [Regular rate and rhythm] ABD: [Soft], [nontender to palpation] EXT: Normal range of motion; minimal tenderness L hip SKIN: [No rashes or lesions.] NEURO: [Alert and oriented x 3. No gross focal sensory or strength deficits.] PSYCH: Normal affect Course Vital Signs Vital signs: Vital Signs Temperature 97.9 F 09/29/24 13:26 Pulse Rate 99 09/29/24 13:26 Respiratory Rate 20 09/29/24 13:26 Blood Pressure 139/69 09/29/24 13:26 Pulse Oximetry 97 09/29/24 13:26 Temperature 97.8 F 09/29/24 16:30 Pulse Rate 82 09/29/24 16:30 Respiratory Rate 17 09/29/24 16:30 Blood Pressure 174/82 H 09/29/24 16:30 Pulse Oximetry 97 09/29/24 16:30 MDM - Abdominal Pain MDM Narrative Medical decision making narrative: Electronic medical record was reviewed. Patient presented to the ED with complaint of [L abdominal pain]. Vitals [were within acceptable limits]. Physical exam revealed well-appearing patient with some very minimal discomfort to the left hip with reproduction of pain with movement of the left hip. Based on the patient's history and physical exam, my differential includes but is not limited to [gastritis, Hip strain, diverticulitis, kidney stone]. [IV access was established by nursing staff]. CBC, BMP, lipase, LFTs, bilirubin and alk phos were obtained. Labs were pertinent for normal labs other than elevated Cr and urine. [Decision was made to obtain a CT-abdomen to evaluate for acute abdominal process. CT-abdomen per radiology interpretation is unremarkable for acute intra-abdominal process, no signs of hydronephrosis, cholecystitis, appendicitis.] on re-evaluation, They are not complaining of any new abdominal pain. Repeat examination did not show any significant guarding or rebound. No new tenderness. At this time I do not feel there is any further emergent treatment to be provided. The patient was given strict return precautions, if they are to develop any worsening abdominal pain, vomiting, or blood in the vomit they are to return to the emergency department immediately. Patient verbally acknowledges understanding these directions. [The patient was informed of the above diagnostic test findings; pt reports he was told to f/u with nephrology due to elevated Cr but hasn't yet.] Importance of f/u to nephro emphasized. They will be discharged home [with prescriptions]. They were advised to follow-up with [their PCP] in 2 days. The patient feels that this is appropriate medical decision making and verbalizes an understanding of the discharge instructions. Lab Data 09/29/24 14:01 09/29/24 14:01 Labs: Lab Results 09/29/24 09/29/24 Range/Units 14:01 16:04 WBC 7.4 (4.5-10.0) K/mm3 RBC 5.08 (4.6-6.20) M/mm3 Hgb 13.2 L (14.0-18.0) g/dL Hct 41.9 L (42.0-52.0) % MCV 82.5 (80-100) fl MCH 26.0 (26-34) pg MCHC 31.5 L (32-36) g/dl RDW 14.0 (11.5-14.5) % Plt Count 323 (150-375) k/mm3 MPV 9.9 (7.4-10.4) fl Immature Gran % (Auto) 0.4 (0-0.5) % Neut % (Auto) 60.0 (45.5-73.1) % Lymph % (Auto) 28.5 (18.3-44.2) % Brooks % (Auto) 9.3 H (2.6-8.5) % Eos % (Auto) 1.1 (0-4.4) % Baso % (Auto) 0.7 (0.2-1.2) % Lymph # (Auto) 2.11 (0.9-3.2) K/mm3 Brooks # (Auto) 0.7 H (0.1-0.6) K/mm3 Eos # (Auto) 0.1 (0-0.3) K/mm3 Baso # (Auto) 0.1 (0.0-0.1) K/mm3 Abs Immat Gran (auto) 0.03 (0.00-0.031) K/mm3 Absolute Neuts (auto) 4.4 (1.3-6.7) K/mm3 Absolute Nucleated RBC 0.000 (0.0-0.012) K/mm3 Nucleated RBC % 0.0 (0.0-0.2) % Sodium 137 (137-145) mmol/L Potassium 3.9 (3.4-5.0) mmol/L Chloride 103 (98-107) mmol/L Carbon Dioxide 26 (22-30) mmol/L Anion Gap 8 (4-12) mmol/L BUN 28 H (9-20) mg/dL Creatinine 1.90 H (0.7-1.3) mg/dL Estim Creat Clear Calc 50 ml/min Estimated GFR 44 L (59 - ) Glucose 151 H (65-110) mg/dL Calcium 9.6 (8.4-10.2) mg/dL Total Bilirubin 0.6 (0.2-1.3) mg/dL AST 32 (17-59) U/L ALT 27 (6-50) U/L Alkaline Phosphatase 100 (38-126) U/L Total Protein 8.0 (6.3-8.2) g/dL Albumin 4.6 (3.5-5.1) g/dL Lipase 83 (23-300) U/L Urine Color Yellow (Yellow) Urine Appearance Clear (Clear) Urine pH 5.0 (5.0-9.0) Ur Specific [place] 1.028 (1.001-1.035) Urine Protein Negative (Negative) mg/dL Urine Glucose (UA) 3+ H (Negative) mg/dL Urine Ketones Negative (Negative) mg/dL Ur Blood (Man) Negative (Negative) Urine Nitrate Negative (Negative) Urine Bilirubin Negative (Negative) Urine Urobilinogen 0.2 (<2.0) mg/dL Leukocyte Esterase Rfl Negative (Negative) KENDRICK/UL Imaging Data Radiologist's impression: ITS Impressions Abdomen/Pelvis CT 09/29/24 15:31 IMPRESSION: 1. No acute intra-abdominal/pelvic process. Discharge Plan Discharge Clinical Impression: Left sided abdominal pain Patient Disposition: Home, Self-Care Condition: Stable Instructions: Acute Kidney Injury (DC), Abdominal Pain (ED) Additional Instructions: Please follow up with your doctor and the kidney doctor; make sure to keep hydrated. You can always return for any further issues. Patient Language: Australian Prescriptions: New acetaminophen [Tylenol Extra Strength] 500 mg tablet 1,000 mg PO Q6H PRN (Reason: pain) Qty: 50 0RF methocarbamol 750 mg tablet 750 mg PO TID PRN (Reason: muscle spasm) Qty: 30 0RF No Action atorvastatin 40 mg tablet 40 mg PO HS metformin 500 mg tablet 500 mg PO BID sildenafil 100 mg tablet 100 mg PO DAILY PRN (Reason: Erectile Dysfunction) hydralazine 100 mg tablet 100 mg PO TID folic acid 1 mg tablet 1 mg PO DAILY cholecalciferol (vitamin D3) 125 mcg (5,000 unit) capsule 125 mcg PO DAILY doxazosin 2 mg tablet 2 mg PO HS ezetimibe 10 mg tablet 10 mg PO DAILY Jardiance 10 mg tablet 10 mg PO DAILY Trelegy Ellipta 100-62.5-25 mcg blister with device 1 inh INHALATION DAILY metoprolol succinate 50 mg Tablet Extended Release 24 Hr 50 mg PO QAM Qty: 30 0RF amlodipine [Norvasc] 5 mg Tablet 5 mg PO HS Qty: 30 0RF lisinopril 40 mg tablet 40 mg PO HS Qty: 30 0RF alprazolam [Xanax] 0.25 mg tablet 0.25 mg PO TID PRN (Reason: anxiety) Qty: 10 0RF Follow-up/Referrals: Cas Pickard MD [Physician] - 3 Days Nikkie,MD [place] [Primary Care Provider] - 2 Days
[2024-09-29 14:16] LABS: Basophils Absolute Auto 0.1 K/mm3 (0.0-0.1); Basophils Percent Auto 0.7 % (0.2-1.2); Eosinophils Absolute Auto 0.1 K/mm3 (0-0.3); Eosinophils Percent Auto 1.1 % (0-4.4); Hematocrit 41.9 % (42.0-52.0); Hemoglobin 13.2 g/dL (14.0-18.0); Immature Granulocyte Absolute 0.03 K/mm3 (0.00-0.031); Immature Granulocyte Percent A 0.4 % (0-0.5); Lymphocytes Absolute Auto 2.11 K/mm3 (0.9-3.2); Lymphocytes Percent Auto 28.5 % (18.3-44.2); Mean Corpuscular HGB Conc 31.5 g/dl (32-36); Mean Corpuscular Volume 82.5 fl (80-100); Mean Platelet Volume 9.9 fl (7.4-10.4); Monocytes Absolute Auto 0.7 K/mm3 (0.1-0.6); Monocytes Percent Auto 9.3 % (2.6-8.5); Neutrophils Absolute Auto 4.4 K/mm3 (1.3-6.7); Platelet Count Result 323 k/mm3 (150-375); Red Blood Count 5.08 M/mm3 (4.6-6.20); White Blood Count 7.4 K/mm3 (4.5-10.0)
[2024-09-29 14:30] LABS: Alanine Aminotransferase 27 U/L (6-50); Albumin Level 4.6 g/dL (3.5-5.1); Alkaline Phosphatase 100 U/L (38-126); Anion Gap 8 mmol/L (4-12); Aspartate Amino Transferase 32 U/L (17-59); Bilirubin,Total 0.6 mg/dL (0.2-1.3); Blood Urea Nitrogen 28 mg/dL (9-20); Calcium 9.6 mg/dL (8.4-10.2); Carbon Dioxide 26 mmol/L (22-30); Chloride 103 mmol/L (98-107); Estimated CRCL calculation 50 ml/min; Estimated Glomerular Filt Rate 44; Glucose 151 mg/dL (65-110); Lipase 83 U/L (23-300); Potassium 3.9 mmol/L (3.4-5.0); Sodium 137 mmol/L (137-145)
[2024-09-29 16:17] LABS: Add Urine Microscopic? NO; Appearance Urine Clear (Clear); Bilirubin Urine Negative (Negative); Blood Urine Negative (Negative); Color Urine Yellow (Yellow); Glucose Urine UA 3+ mg/dL (Negative); Ketones Urine Negative (Negative); Leukocyte Esterase Ur Negative LEU/UL (Negative); Nitrate Urine Negative (Negative); Protein Urine Negative (Negative); Specific Grav Ur 1.028 (1.001-1.035); Urobilinogen Urine 0.2 mg/dL (<2.0)
[2024-09-29 16:30] VITALS: BP 174/82; PULSE 82; RESP 17; TEMP 36.6; O2SAT 97
== END 2024-09-29 16:20 | disposition home or self-care (01) ==
PROVIDERS: Emergency Provider Emergency Medicine; PCP Internal Medicine
DX: R10.30 Lower abdominal pain, unspecified (principal); E11.9 Type 2 diabetes mellitus without complications; E78.5 Hyperlipidemia, unspecified; I10 Essential (primary) hypertension; G47.33 Obstructive sleep apnea (adult) (pediatric); F43.10 Post-traumatic stress disorder, unspecified; Z79.84 Long term (current) use of oral hypoglycemic drugs; Z79.899 Other long term (current) drug therapy
CPT/HCPCS: 36415; 74177; 80053; 81003; 83690; 85025; 93005; 99284; Q9967